=== PATIENT | female | born 1965 | race Caucasian/White ===

== ENCOUNTER 2023-10-11 07:00 | Day surgery (SDC) | payer OTHER ==
[~2023-10-11] VITALS: Ht 154.9 cm; Wt 54.0 kg
[~2023-10-11 07:00] MED LIST: GRALISE300 MG PO; PENTOXIFYLLINE400 MG PO; VITAMIN D250 MC1 PO; VITAMIN E180 M1 PO
[2023-10-11 07:14] VITALS: BP 140/85
[2023-10-11 10:04] VITALS: BP 147/83
[2023-10-11] MEDS ORDERED: HYDROCODON-ACE1 EAC8 PO (10:15)
--- NOTE | 2023-10-11 10:58 | OR ---
[facility] [place] [facility] [address], [place] [address] Signed DATE OF OPERATION: 10/11/2023 SURGEON: Jaida Dobbs MD PREOPERATIVE DIAGNOSES: 1. Left internal jugular qubz-g-[id number]. 2. Stage IV right breast cancer. POSTOPERATIVE DIAGNOSES: 1. Left internal jugular xyxr-t-oxgdiotf. 2. Stage IV right breast cancer. PROCEDURE: Removal of left IJ lkoj-l-monevykz. ESTIMATED BLOOD LOSS: None. INDICATIONS: Joyce is a 58-year-old female, I have known for many years. Through the COVID pandemic and changing primary care providers, she went a year or two without mammograms. She then presented with a stage IV right breast cancer. She has worked carefully with her physicians at [facility]. She underwent bilateral mastectomy along with her chemotherapy and radiation therapy. She was referred to my office as a local general surgeon to have the left internal jugular mmyw-k-xliqebyg removed. Her medical oncologist, Dr. Peña, has now moved out to [facility] in [place], [place]. In the office, I explained to Joyce the nature of the surgery. There is risk including, but not limited to bleeding, infection, scarring, change in contour of the skin as well as air embolization. She told me she has severe anxiety and she wanted to be asleep while this was removed. It is perfectly fine. We do this in the operating room under very sterile control conditions. We always use a pursestring suture around the catheter tunnel as well. This will be a day surgery and she will be going home afterwards. She had expressed understanding and wished to proceed. DESCRIPTION OF PROCEDURE: I met with Joyce in our preop area. After this, we took her into the operating room and placed in the supine position under general LMA anesthesia. She was placed into the reverse Trendelenburg position. She had been given IV antibiotics along with subcutaneous heparin. SCDs were utilized. She was prepped and draped in the usual Electronically Signed By: JAIDA DOBBS MD 10/11/23 1058 PATIENT NAME: JOYCE MANZO OPERATIVE REPORT DATE OF : 63 REPORT #: [id number] PHYSICIAN: JAIDA DOBBS MD PCP: JANIS PEPE PAC REPORT IS CONFIDENTIAL AND NOT TO BE RELEASED WITHOUT AUTHORIZATION [facility] [place] [facility] [address], [place] [address] Signed sterile fashion. I injected local anesthetic around the hub and along the catheter tract up to the left internal jugular vein. We utilized her previous oblique incision and we opened it sharply with a 15 blade knife. We went down around the catheter hub with the help of the cautery to remove the entire pseudocapsule along with the catheter hub. The catheter was withdrawn without any resistance whatsoever. We used a 2-0 Prolene pursestring suture around the interest to the tunnel the level of clavicle that was tied down as the catheter was removed with good results. I inspected the catheter very carefully. We were all convinced that the entire catheter was completely removed. After this, the wound was irrigated and suctioned out until clear. We closed the dermis with interrupted 3-0 subcuticular Monocryl sutures. The skin edges were reapproximated with running 5-0 fast absorbing plain gut suture. Dry gauze and tape was then applied. Joyce was awakened from her anesthesia, extubated in the OR, and taken to recovery room in stable condition. Jaida Dobbs MD ALB/MODL /[id number] cc: MD Janis Pedraza PA-C Copies: JAIDA DOBBS MD, ERIKA PAC ~ Electronically Signed By: JAIDA DOBBS MD 10/11/23 1058 PATIENT NAME: JOYCE MANZO OPERATIVE REPORT DATE OF : 63 REPORT #: [id number] PHYSICIAN: JAIDA DOBBS MD PCP: JANIS PEPE REPORT IS CONFIDENTIAL AND NOT TO BE RELEASED WITHOUT AUTHORIZATION
[2023-10-11 11:01] VITALS: BP 152/81
== END 2023-10-11 11:10 | disposition home or self-care (01) ==
LOC: DS 07:00
PROVIDERS: ATTEND Colon & Rectal Surgery
PROC: 0JPT0WZ Removal of Totally Implantable Vascular Access Device from Trunk Subcutaneous Tissue and Fascia, Open Approach (ICD-10-PCS; principal; 2023-10-11 08:30)
DX: C50.912 Malignant neoplasm of unspecified site of left female breast (principal)
CPT/HCPCS: 00532; J0131; J0690; J1100; J1644; J2001; J2405; J2704; J3010; J7121

== ENCOUNTER 2025-02-18 05:52 | Day surgery (SDC) | payer OTHER ==
[2025-02-16 09:39] VITALS: BP 131/79
[~2025-02-18] VITALS: Ht 154.9 cm; Wt 51.8 kg
[~2025-02-18 05:52] MED LIST changes: +GABAPENTIN100 MG PO; -GRALISE300 MG PO; +HYDROCODON-ACE1 EAC8 PO; +MIDAZOLAM HCL 5 MG/5 ML VIAL IV PRN; +fentaNYL citrate 100 MCG/2 ML VIAL IV PRN
[2025-02-18 06:11] VITALS: BP 140/82
[2025-02-18] MEDS ORDERED: LACTATED RINGER'S 1,000 ML IV SCH (07:00)
[2025-02-18] MEDS ORDERED: IBLOOD GLUCOSE TEST STRIP 1 EA TEST VI PRN (07:00)
[2025-02-18] MEDS ORDERED: LIDOCAINE HCL 1% 5 ML SDV INJ ONE (07:00)
[2025-02-18] MEDS ORDERED: propofoL 200 MG/20 ML VIAL ONE ×2 (07:12→08:11)
[2025-02-18] MEDS ORDERED: LIDOCAINE HCL 2% 5 ML SDV ONE (07:12)
--- NOTE | 2025-02-18 08:23 | NUR ---
02/18/25 0823 Edgard Acevedo 0813: PT ARRIVED TO PACU VIA STRETCHER. PT HAD ORAL AIRWAY IN PLACE. PT ON RA. REPORT TAKEN FROM ALISHA DOYLE AND JOE FONTANA. [id number]: PT AROUSABLE. REMOVED ORAL AIRWAY AT THIS TIME.
[2025-02-18 08:39] VITALS: BP 129/76
--- NOTE | 2025-02-18 10:09 | OR ---
[facility] [address] [place], [place] [address] Signed DATE OF OPERATION: 02/18/2025 SURGEON: Jaida Dobbs MD PREOPERATIVE DIAGNOSES: 1. Chronic intermittent iron-deficiency anemia. 2. Sigmoid diverticulum x1. 3. Screening. POSTOPERATIVE DIAGNOSES: 1. Tiny hiatal hernia. 2. Proximal esophageal Alvarado's mucosa. 3. GE junction at 30 cm. 4. Minimal sigmoid diverticulosis. PROCEDURES: 1. Esophagogastroduodenoscopy with CLOtest and biopsy of the antrum. 2. Colonoscopy without biopsy. ESTIMATED BLOOD LOSS: None. INDICATIONS: Joyce is a 59-year-old female asked to see me for both upper and lower endoscopy. She was an oncologic nurse many years ago. She took over [employer] business more than 15 years ago. She is now retired. Her happens to be an animal care technician. She told me she has intermittent chronic recurring iron-deficiency anemia. She said it has been her whole life. She currently has a normal hemoglobin level and mean cell volume is fine. She seems to respond nicely to the either IV or p.o. iron. I helped her with an initial screening colonoscopy in 2014 at the age of 50. She had a little single sigmoid diverticulum. We asked her to return in 10 years. She has no family history of colon cancer or polyps. She does not seem to have any upper, lower or GI complaints. She just came through bilateral mastectomies and chemotherapy for her stage IV breast cancer in 2022. She is doing very well in that regard. She actually have me take her port catheter out back in 2022. In the office, I gave her a pamphlet on both upper and lower endoscopy. We had reviewed the nature of the two tests. There is risk including, but not limited to gas bloating, crampy abdominal pain, bleeding, perforation requiring surgery, and missed diagnosis. We also reviewed the written instructions for the bowel prep line by line. She also understands the need for monitored anesthesia care given her use of marijuana as well as her premature ventricular contractions and Electronically Signed By: JAIDA DOBBS MD 02/18/25 1009 PATIENT NAME: JOYCE MANZO OPERATIVE REPORT DATE OF : 63 REPORT #: [id number] PHYSICIAN: JAIDA DOBBS MD PCP: AVERY PEPE PAC REPORT IS CONFIDENTIAL AND NOT TO BE RELEASED WITHOUT AUTHORIZATION [facility] [address] [place], [place] [address] Signed bradycardia. She had expressed understanding and wished to proceed. She said her will be taking her home. DESCRIPTION OF PROCEDURE: Joyce was taken into our endoscopy suite, placed in the supine semi-recumbent position. A bite block was utilized for the case. She was given monitored anesthesia care per our nurse weatherstrip machine operator. The adult gastroscope was introduced and advanced under direct visualization of camera into the duodenum. The duodenum and pyloric channel were unremarkable. Her stomach was fine. No ulcerations. We took a single biopsy of the antrum for CLOtest as well as pathologic review. Upon retroflexion of scope she prior has just a very tiny hiatal hernia. The scope was withdrawn up through the area of the GE junction, which was compliant without stricture. There was no gastric or esophageal varices. Very minimal inflammation around the Z-line at 30 cm. No Alvarado's mucosa in the distal esophagus. She had no esophagitis. As we were coming out of the proximal esophagus, she started to cough quite a bit with some saliva on the vocal cords. I could see some Alvarado's appearing mucosa just below the upper esophageal sphincter. With her continued coughing, we were not able to catch a biopsy of that area. She certainly can do that in the next 1 to 3 years. After this, the gas was suctioned out, colonoscope and the gastroscope removed. She had tolerated the procedure quite well. Joyce was then rotated into the left lateral decubitus position. She was maintained on monitored anesthesia care with propofol infusion per our nurse weatherstrip machine operator. A digital rectal exam was performed. This was unremarkable. No external hemorrhoids. Good sphincter tone. No masses. The adult colonoscope was introduced and advanced under direct visualization of camera without difficulty. Her prep was quite excellent. We could easily see the appendiceal orifice and ileocecal valve. The scope was then slowly withdrawn. She does have a few diverticula in the sigmoid colon. They were small in size, few in number and scattered about. Once in the rectum, the scope was retroflexed and we did not see any additional pathology above the anal canal. After this, the gas was suctioned out, colonoscope removed. Joyce tolerated the procedure quite well. RECOMMENDATIONS: Joyce to follow up my office in 7 to 14 days to review her results. She could consider a simple barium swallow x-ray to evaluate her swallowing and for a hiatal hernia. She might consider a repeat upper endoscopy here in a year or so just to take some biopsies in that proximal esophagus. Otherwise, she will be on the 10 year plan for screening colonoscopies. Electronically Signed By: JAIDA DOBBS MD 02/18/25 1009 PATIENT NAME: JOYCE MANZO OPERATIVE REPORT DATE OF : 63 REPORT #: [id number] PHYSICIAN: JAIDA DOBBS MD PCP: AVERY PEPE REPORT IS CONFIDENTIAL AND NOT TO BE RELEASED WITHOUT AUTHORIZATION [facility] [address] [place], [place] [address] Signed MD HARMONY Pedraza/MODL /[id number] cc: TIFFANY Moctezuma MD [place] Hobbs, [place], [place] Copies: AVERY PEPE ANDREW L MD ~ Electronically Signed By: JAIDA DOBBS MD 02/18/25 1009 PATIENT NAME: JOYCE MANZO OPERATIVE REPORT DATE OF : 63 REPORT #: [id number] PHYSICIAN: JAIDA DOBBS MD PCP: AVERY PEPE PAC REPORT IS CONFIDENTIAL AND NOT TO BE RELEASED WITHOUT AUTHORIZATION
== END 2025-02-18 08:50 | disposition home or self-care (01) ==
LOC: DS 05:52
PROVIDERS: ATTEND Colon & Rectal Surgery
PROC: 0DB68ZX Excision of Stomach, Via Natural or Artificial Opening Endoscopic, Diagnostic (ICD-10-PCS; principal; 2025-02-18 07:30)
PROC: 0DJD8ZZ Inspection of Lower Intestinal Tract, Via Natural or Artificial Opening Endoscopic (ICD-10-PCS; 2025-02-18 07:30)
DX: Z12.11 Encounter for screening for malignant neoplasm of colon (principal); D50.8 Other iron deficiency anemias; K44.9 Diaphragmatic hernia without obstruction or gangrene; K22.70 Barrett's esophagus without dysplasia; K57.30 Diverticulosis of large intestine without perforation or abscess without bleeding; F12.10 Cannabis abuse, uncomplicated; Z85.3 Personal history of malignant neoplasm of breast
CPT/HCPCS: 00813; 36415; 87077; J2003; J2704